=== PATIENT | male | born 1995 | race Two or more races ===

== ENCOUNTER → 2024-12-10 | Emergency (ER) | payer OTHER ==
[~2024-12-10] VITALS: Ht 170.2 cm; Wt 66.7 kg
[~2024-12-10] MED LIST: FAMO20TA80 PO; FAMOTIDINE (20 MG) 20 MG TABLET ONE; PANT40TA49 PO; PANTOPRAZOLE 40 MG/PACK PACK ONE
[2024-12-10 12:43] VITALS: BP 137/82; TEMP 97.3; O2SAT 99
[2024-12-10] MEDS: FAMOTIDINE (20 MG) 20 MG TABLET PO ONE (13:31)
[2024-12-10] MEDS: PANTOPRAZOLE 40 MG/PACK PACK PO ONE (13:32)
== END | disposition home or self-care (01) ==
LOC: ER 12:10
DX: K21.9 Gastro-esophageal reflux disease without esophagitis (principal); R07.0 Pain in throat